=== PATIENT | female | born 1995 | race Two or more races ===

== ENCOUNTER 2020-05-07 08:00 | Outpatient (CLI) | payer OTHER ==
[2020-05-07] MEDS ORDERED: NORE-66 PO (14:42)
== END 2020-05-07 23:59 | disposition home or self-care (01) ==
LOC: STAR 08:00
PROVIDERS: ATTEND Urology
DX: Z01.818 Encounter for other preprocedural examination (principal); Z11.59 Encounter for screening for other viral diseases; N36.8 Other specified disorders of urethra
CPT/HCPCS: 36415; 87635